=== PATIENT | female | born 2000 | race Two or more races ===

== ENCOUNTER → 2024-09-18 | Emergency (ER) | payer OTHER ==
[~2024-09-18] VITALS: Ht 154.9 cm; Wt 55.3 kg
[~2024-09-18] MED LIST: KETO10TA2 PO; KETOROLAC TROMETHAMINE 60 MG VIAL IM ONE; ONDANSETRON HCL 2 MG/ML VIAL IV STA
== END | disposition home or self-care (01) ==
LOC: ER 11:12
DX: N94.6 Dysmenorrhea, unspecified (principal)